=== PATIENT | male | born 1995 ===

== ENCOUNTER 2024-02-03 20:24 | Emergency (ER) | payer OTHER, SELFPAY ==
[2024-02-03 20:47] LABS: % Basophils 0.5 % (0-2); % Eosinophils 1.9 % (0-6); % Immature Granulocytes 0.1 % (0-0.5); % Lymphocytes 24.4 % (20.5-51.1); % Monocytes 6.9 % (1.7-9.3); % Neutrophils 66.2 % (42.2-75.2); Absolute Eosinophils 0.2 10^3/uL (0-0.7); Absolute Monocytes 0.6 10^3/uL (0.1-0.6); Absolute Neutrophils 5.5 10^3/uL (1.4-6.5); Hematocrit 44.4 % (39.0-52.0); Hemoglobin 15.7 g/dL (13.0-18.0); Mean Corp Hgb Conc. 35.4 g/dL (33.0-37.0); Mean Corpuscular Hgb 31.2 pg (27.0-31.0); Mean Corpuscular Volume 88.3 fL (80.0-94.0); Mean Platelet Volume 10.3 fL (7.4-10.4); Nucleated Red Blood Cells % 0 % (-); Platelet Count 246 10^3/uL (130-400); Red Blood Cell Count 5.03 10^6/uL (4.70-6.10); Red Cell Dist. Width 12.2 % (11.5-14.5); White Blood Cell Count 8.3 10^3/uL (4.8-10.8)
[2024-02-03 20:59] LABS: ALT (SGPT) 59 U/L (0-50); AST (SGOT) 49 U/L (17-59); Albumin 4.9 g/dl (3.5-5.0); Alkaline Phosphatase 45 U/L (38-126); Blood Urea Nitrogen 22 mg/dl (9-20); Calcium 9.9 mg/dl (8.4-10.2); Carbon Dioxide 31 mmol/L (22-30); Chloride 101 mmol/L (98-107); Glucose 103 mg/dl (70-99); Lipase 150 U/L (23-300); Potassium 4.1 mmol/L (3.5-5.1); Sodium 140 mmol/L (135-145); Total Bilirubin 0.5 mg/dl (0.2-1.3); Total Protein 7.4 g/dl (6.3-8.2); eGFR > 60.00
[2024-02-03 21:11] LABS: Troponin I < 0.012 ng/ml
--- NOTE | 2024-02-03 23:11 | ED.GENMED ---
History of Present Illness
General
Chief Complaint: Chest Pain
Source: patient
Exam Limitations: none
Time Seen by Provider: 02/03/24 23:11
Nursing documentation reviewed up to this point in time: agreed with
History of Present Illness
History of Present Illness:
The patient is a pleasant 29-year-old man who reports for chest pain that started about 2 days ago. Patient noticed that after he went to the gym and played basketball. He denies any specific injury. The patient reports it is better when he lays
flat and worse when he sits up. Patient denies shortness of breath and cough. He denies a history of PE and DVT. He reports it is not worse when he takes a deep breath.
Past History
Past History
ED Past Medical History: Asthma
ED Past Surgical History: None
Social History
Tobacco: Vaping
Alcohol: Other
Drug: None
Personal: Single
Living: with family
Employment: Other
Family History
Family History: Other
Review of Systems
Review of Systems
Allergies reviewed?: Yes
All Other Systems: ROS reviewed and negative except as documented in HPI and ROS
Constitutional: Reports no symptoms
EENT: Reports no symptoms
Respiratory: Reports no symptoms
Cardiac: Reports chest pain
ABD/GI: Reports no symptoms
: Reports no symptoms
Musculoskeletal: Reports no symptoms
Skin: Reports no symptoms
Neurological: Reports no symptoms
Endocrine: Reports no symptoms
Hematologic/Lymphatic: Reports no symptoms
Psychiatric: Reports no symptoms
Phy Exam
Physical Exam
Physical Exam:
Physical Exam
General: no apparent distress, not acutely ill. Well and comfortable appearing
Neck: supple. no meningeal signs. normal psoterior pharynx
Heart: s1/s2 regular rate and rhythm, no murmur. equal radial pulses. Mild left parasternal chest tenderness on exam.
Lungs: no acute respiratory distress. clear bilaterally
Abdomen: normal bowel sounds. not tender. no CVAT
Neuro: alert and oriented. no focal neurological deficits
Skin: no rash
Psychiatric: well kept. interactive and cooperative
Extremities: no edema. no calf tenderness. negative homans. good distal pulses
Scores
Heart Score for Chest Pain Patients
STEMI patient?: Not applicable
Course
Orders/Labs/Results
Orders:
Orders
02/03/24 20:29
EKG [Electrocardiogram (*1)] Urgent
Reason for Study: Chest Pain
02/03/24 20:30
EKG- Treatment ONCE
02/03/24 20:31
Chest [CR Chest - 2 Views ] Urgent
Comment:
Reason For Exam: chest pain
02/03/24 20:38
CBC/With Diff [Complete Blood Count/With Diff] Urgent
CMP [Comprehensive Metabolic Panel] Urgent
Lipase Urgent
Troponin I Urgent
Abnormal Lab Results
02/03/24
20:38
MCH 31.2 H pg
(27.0-31.0)
Carbon Dioxide 31 H mmol/L
(22-30)
BUN 22 H mg/dl
(9-20)
Creatinine 1.4 H mg/dL
(0.7-1.3)
Glucose 103 H mg/dl
(70-99)
ALT 59 H U/L
(0-50)
02/03/24 20:38
02/03/24 20:38
Vital Signs
Initial and Last Documented VS:
Initial Vital Signs
Temp Pulse Resp BP Pulse Ox
98.2 F 87 18 139/104 99
02/03/24 20:26 02/03/24 20:26 02/03/24 20:26 02/03/24 20:26 02/03/24 20:26
Last Documented Vital Signs
Temp Pulse Resp BP Pulse Ox
98.2 F 59 18 125/73 99
02/03/24 20:26 02/04/24 00:02 02/04/24 00:02 02/04/24 00:02 02/04/24 00:02
MDM/Problems Addressed
Differential Diagnosis Includes:
Musculoskeletal chest pain, pleuritis, PE, pneumonia
MDM/Problems Addressed:
Patient presents with acute left-sided chest pain
Acute Exacerbation and/or Progression of Chronic Illness:
The patient is acutely hypertensive likely due to anxiety being in the ED.
Acute Exacerbation and/or Progression of Chronic Illness: HTN
*Radiology
Radiology exam reviewed: preliminary read by ED provider (Chest x-ray reviewed by me. No acute disease) and radiology read reviewed
*Pulse Oximetry
Patient hypoxic: no
*EKG
Interpreted by ED Provider?: Yes
Interpretation: normal
Comparison EKG: no comparison EKG present
Rate: bradycardiac
Rhythm: sinus arrhythmia
[place]: normal axis
Interval: normal interval
QRS Pattern: normal QRS
Ischemia: no ischemia
*[employer] Interpretation
Rate: [employer]- N/A
*Critical Care Note
Total Time (30-74mins, 75-104mins- exclusive of procedures): Not Applicable
Data Reviewed
Source: patient
Patient Management
Social determinants of health affecting care: Living situation and Strong social support
Escalation/DeEscalation of care consider admission/obs:
Patient looks well and comfortable. His breath sounds are clear. He has no tachycardia, tachypnea or hypoxia. It is doubtful he has a PE given that he has no leg swelling or calf pain. He has no reproducible chest pain when taking a deep breath.
Patient's pain may be musculoskeletal in etiology or he could have costochondritis. Patient encouraged to follow-up with his doctor in 2 to 3 days if chest pain is not gone after taking NSAIDs.
ED Attending Note
-
Portions of this chart may have been created with voice recognition software.� Occasional wrong word or��sound alike� substitutions may have occurred due to the inherent limitations of voice recognition software.
Discharge Plan
Departure
Patient Disposition: Home (Routine Discharge)
Date of Disposition: 02/03/24
Time of Disposition: 23:58
Patient with high blood pressure during this ER visit?: Yes
Condition: Good
Covid-19: Not Applicable
Discharge Problem:
Chest pain in adult
Instructions: Chest Pain PCP Follow Up
Referrals:
NONE,* [Family Provider] -
Activity Restrictions/Additional Instructions:
Please take 600 mg of Advil/Motrin with food every 6-8 hours for the next 48 hours. If you are still having chest pain after that, please follow-up with your primary care doctor this coming up week
Interventions
Interventions:
*Risk Screen - Suicide Last Done: 02/03/24 20:26
*General Assessment Last Done: 02/03/24 20:26
*Neglect/Abuse Screening Last Done: 02/03/24 20:26
*Nursing Disposition Last Done: 02/04/24 00:02
ED- Cardiac Assessment Last Done: 02/03/24 23:48
Discharge Date and Time
Discharge Date/Time: 02/04/24 00:03
Print Language: LIBERIAN
== END 2024-02-04 00:03 | disposition home or self-care (01) ==
LOC: EMR 20:24
PROVIDERS: EMERGENCY PHYSICIAN Emergency Medicine
DX: R07.89 Other chest pain (principal); J45.909 Unspecified asthma, uncomplicated; F17.290 Nicotine dependence, other tobacco product, uncomplicated
CPT/HCPCS: 99283; 71046; 80053; 83690; 84484; 85025; 93005